=== PATIENT | female | born 1995 | race Caucasian/White ===

== ENCOUNTER 2022-09-21 00:43 | Emergency (ER) | payer SELFPAY ==
[~2022-09-21] VITALS: Ht 162.6 cm; Wt 63.5 kg
[2022-09-21 00:53] VITALS: TEMP 98.4; O2SAT 100
[2022-09-21 01:16] LABS: BASOPHILS % 0.3 % (0.0-2.0); EOSINOPHILS % 1.4 % (0.0-5.0); HEMATOCRIT. 37.4 % (36.0-48.0); HEMOGLOBIN. 12.7 g/dL (12.0-16.0); MEAN CORPUSCULAR HEMOGLOBIN 29.8 pg (28.0-32.0); MEAN CORPUSCULAR VOLUME 87.4 fL (81.0-99.0); MEAN PLATELET VOLUME 7.7 fl (7.4-10.4); MONOCYTES % 8.1 % (2.0-8.0); NEUTROPHILS % 72.2 % (40.0-76.0); PLATELET 267 x1000/uL (130-400); RED BLOOD CELL COUNT 4.28 mill/uL (4.2-5.4)
[2022-09-21 01:25] LABS: CHLORIDE 109 mEq/L (98-107)
[2022-09-21 01:47] LABS: B-HCG QUANTITATIVE 11759 mIU/mL (<3)
[2022-09-21 02:47] VITALS: BP 115/66; PULSE 95; RESP 13
== END 2022-09-21 03:13 | disposition home or self-care (01) ==
LOC: ER 00:43
DX: O46.91 Antepartum hemorrhage, unspecified, first trimester (principal); Z3A.01 Less than 8 weeks gestation of pregnancy
CPT/HCPCS: 80053; 84702; 85025; 86850; 86900; 86901; 36415; 76801; 76817; 99284; Z7610